=== PATIENT | male | born 1955 | race Caucasian/White ===

== ENCOUNTER 2025-04-03 02:59 | Inpatient (IN) | payer MEDICARE, MEDICAID, SELFPAY ==
[2025-04-03] VITALS (36 sets, daily range): BP systolic 83–110; BP diastolic 45–81; PULSE 59–94; RESP 11–22; TEMP 36.3–37.2; O2SAT 94–100; BMI 21.1
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
[2025-04-03 03:59] LABS: Hematocrit 26.5 % (40-54); Hemoglobin 8.1 g/dL (13.0-16.5); Mean Corp Hgb Conc 30.6 g/dL (32-36); Mean Corpuscular Volume 89.8 fL (80-94); Mean Platelet Vol. 11.2 fl (6.2-12.0); Platelet Count 222 K/mm3 (150-450); RBC Distribution Width CV 15.8 % (11.6-14.6); RBC Distribution Width SD 51.5 fl (35.1-43.9); Red Blood Count 2.95 M/mm3 (4.6-6.2); White Blood Count 6.6 K/mm3 (4.4-11.0)
[2025-04-03 04:06] LABS: Prothrombin Time (Protime)PT. 15.0 SECONDS (11.7-14.9)
[2025-04-03] MEDS: 0.9% Normal Saline (1000mL) 1,000 ML 150 ML IV (04:12)
[2025-04-03] MEDS: Pantoprazole Sodium 80 MG in 0.9% Normal Saline (100mL Bag) 80 ML 10 MG CONT INF ×3 (04:13→22:36)
[2025-04-03 04:29] LABS: AST(SGOT) 14 U/L (<=37); Alanine Aminotransfer ALT/SGPT 8 U/L (<=46); Albumin, Serum 3.1 g/dL (3.4-4.8); Alkaline Phosphatase 62 U/L (40-129); Anion Gap 11 (5-15); BUN 13 mg/dL (4-19); BUN/Creat Ratio 24.2 RATIO (10-20); Calcium,Total 8.5 mg/dL (7.6-11.0); Carbon Dioxide 24.0 mmol/L (21.0-32.0); Chloride 106 mmol/L (98-108); Estimated Creatinine Clearance 88.25 ml/min (50-250); FOLATES,SERUM (FOLIC ACID) 9.35 ng/mL (4.60-34.80); Globulin 2.1 g/dL (2.2-4.2); Glucose 78 mg/dL (70-99); Iron 151 ug/dL (65-175); Iron Binding Capacity,Total 246 ug/dL (250-450); Iron Binding Capacity,Unsat 95 ug/dL (228-428); Magnesium 1.7 mg/dL (1.5-2.2); Potassium 3.5 mmol/L (3.3-5.1)
[2025-04-03 04:30] LABS: Ferritin 45 ng/mL (37-417)
[2025-04-03 04:58] LABS: Vitamin B12 2123 pg/mL (180-914)
[2025-04-03] MEDS: 0.9% Normal Saline (1000mL) 1,000 ML 999 ML IV (06:18)
[2025-04-03 07:30] LABS: Troponin T High Sensitivity 48 ng/L (<=22)
[2025-04-03 09:41] LABS: Troponin T High Sens 2 HR 65 ng/L (<=22)
--- NOTE | 2025-04-03 10:26 | CASEMGMT ---
Addendum entered by David Gamboa 04/03/25 15:46: Pt gave permission for this RN CM to call his friend, [place], to let him know he has been admitted to [facility]. He also states would like Glenroy notified when he discharges back to [facility]. Call placed to Glenroy @ this time. He states he was aware pt has been admitted to [facility] and appreciated the call. He asked for RN CM to let pt know he and his will come visit pt once he returns to [facility]. Pt made aware and voices appreciation. Addendum entered by David Gamboa 04/03/25 11:09: Per Emani @ [facility], pt is there long-term & can return as a bed-hold, no pre-cert is needed. Addendum entered by David Gamboa 04/03/25 10:35: Updates sent to [facility] via [employer]. Original Note: RN CM NOTE: RN CM to room. Pt resting in bed, awake/alert. Introduced self and role. Pt is from [facility] and he states he would like to return there when he discharges from [facility]. Delfina ELLINGTONN ANDRESSA LAMBERT
[2025-04-03] MEDS: Lactated Ringers 1,000 ML 150 ML IV ×2 (10:50→17:31)
--- NOTE | 2025-04-03 10:57 | CASEMGMT ---
Discharge Planning Msg sent to [place] requesting confirmation of contact names/numbers and to see if pt has a legal guardian/poa. Per [place], pt has no legal guardian/poa. Contact information updated in [facility]. Modesta Briseno DC Planning Asst.
--- NOTE | 2025-04-03 11:00 | EX.PCM.CON.G ---
HPI Consult Data Date of Consult: 04/03/25 HPI Narrative Reason for Consultation: GI bleed HPI Narrative: SHAINA ANDERSON, is a 69 M who presents as a transfer from outside hospital for suspected upper GI bleed. He has a past medical history of essential hypertension, history of CVA; with residual deficits , CAD (on aspirin and Plavix) . He was transferred from [facility] ER for upper GI bleed with melanotic stools. According to the records the patient was found to have nausea and vomiting in addition to a low hemoglobin of 7 g/dL . A recheck of his labs revealed a critically low hemoglobin of 6.3 g/dL with MCV of 88 fL (down from baseline hemoglobin of ~13 g/dL in July 2024) hypotension in the ~90 mmHg systolic range with type & screen done A- and he was transfused 2 units of PRBC's in addition to being started on IV pantoprazole infusion. [facility] Medical History Depression Anxiety Sleep apnea Coronary artery disease Stroke/cerebrovascular accident Home Medications ?Medication ?Instructions ?Recorded ?Last Taken ?Type acetaminophen 500 mg capsule 1,000 mg PO BID spinal stenosis 04/03/25 04/02/25 08:40 History aspirin 81 mg tablet 81 mg PO DAILY cerebral infarction 04/03/25 04/02/25 08:40 History atorvastatin 80 mg tablet 80 mg PO DAILY 04/03/25 04/01/25 21:25 History carvedilol 3.125 mg tablet 3.125 mg PO BID 04/03/25 04/02/25 08:40 History clopidogrel 75 mg tablet 75 mg PO DAILY 04/03/25 04/02/25 08:40 History cyanocobalamin (vitamin B-12) 1,000 mcg PO DAILY 04/03/25 04/02/25 08:40 History 1,000 mcg capsule famotidine 20 mg tablet 20 mg PO BID 04/03/25 04/02/25 08:40 History gabapentin 100 mg capsule 100 mg PO DAILY 04/03/25 04/01/25 21:25 History methyl salicylate 15 %-menthol 10 1 applic topical Q4H PRN PRN 04/03/25 Unknown History % topical cream (Muscle Rub) muscle pain Allergy/AdvReac Type Severity Reaction Status Date / Time No Known Allergies Allergy Verified 04/03/25 03:05 Social History Smoking Status: Unknown if ever smoked ROS Constitutional Constitutional: Denies fatigue, fever(s), poor appetite, weight gain or weight loss Gastrointestinal Gastrointestinal: Denies belching, bloating, change in bowel habits, change in stool character, chewing difficulty, coffee ground emesis, constipation, cramping, diarrhea, dyspepsia, dysphagia, early satiety, excessive flatus, fecal incontinence, heartburn, hematemesis, hematochezia, hemorrhoids, loose stools, melena, nausea, odynophagia, rectal bleeding, tenesmus, vomiting or weight changes Physical Exam Const alert, oriented x3, no apparent distress and healthy appearing General Appearance: cooperative GI normal to inspection, nondistended, normoactive bowel sounds, soft to palpation, non-tender and non-distended Percussion: normal to percussion Rectal Exam: deferred Lab / Micro Data 04/03/25 03:41 04/03/25 03:41 Labs: Laboratory Results - last 24 hr 04/03/25 03:41: WBC 6.6, RBC 2.95 L, Hgb 8.1 L, Hct 26.5 L, MCV 89.8, MCH 27.5, MCHC 30.6 L, RDW Std Deviation 51.5 H, RDW Coeff of Delmer 15.8 H, Plt Count 222, MPV 11.2, PT 15.0 H, INR 1.2, Sodium 141, Potassium 3.5, Chloride 106, Carbon Dioxide 24.0, Anion Gap 11, BUN 13, Creatinine 0.53 L, Estim Creat Clear Calc 88.25, Est GFR (MDRD) Non-Af 109, BUN/Creatinine Ratio 24.2 H, Glucose 78, Calcium 8.5, Phosphorus 3.2, Magnesium 1.7, Iron 151, TIBC 246 L, Iron Saturation 61.4 H, Unsaturated IBC 95 L, Ferritin 45, Total Bilirubin 1.69 H, AST 14, ALT 8, Alkaline Phosphatase 62, Total Protein 5.2 L, Albumin 3.1 L, Globulin 2.1 L, Albumin/Globulin Ratio 1.5, Vitamin B12 2123 H, Serum Folate 9.35, TSH 0.648, Blood Type Cancelled, Antibody Screen Cancelled 04/03/25 04:00: Blood Type A NEGATIVE, Antibody Screen NEGATIVE 04/03/25 07:04: Troponin T High Sens 48 H 04/03/25 08:48: Troponin T Hi Sens 2 Hr 65 H* Assessment & Plan Assessment/Plan (1) ABLA (acute blood loss anemia): PLAN: He will undergo an upper endoscopy. He was explained alternatives, risk and benefits could not withstand bleeding, infection, sepsis, perforation, emergent . He will have an ASA of 3. Charges/Coding Visit Charges Inpatient E&M: 74727 Init Hosp L3
[2025-04-03 11:08] LABS: Mucous, Urine 0 SEEN /hpf (<or=2+); Squamous Epithelial Cells - UA 0 SEEN /hpf (0-5)
[2025-04-03 11:12] LABS: Color, Urine Yellow (Yellow); Glucose, Dipstick Normal (Normal); Ketone-Dipstick Negative (Negative); Leukocyte Esterase-Dipstick 500 /ul (Negative); Nitrite-Dipstick Negative (Negative); Occult Blood-Urine 250 /ul (Negative); Protein-Dipstick 100 mg/dl (Negative); Specific Gravity, Urine 1.010 (1.002-1.030); Urine Bilirubin Dipstick Negative (Negative)
[2025-04-03 11:22] LABS: Red Blood Cells-Urine 0-5 SEEN /hpf (0-5)
--- NOTE | 2025-04-03 11:34 | PRE.ANES_ITS ---
ASA Classification* ASA Classification ASA Classification: 3 Assessment & Plan Anesthesia* Anesthesia Assessment Anesthesia Assessment: Discussed sedation and/or anesthesia options, risks, benefits, and alternatives with patient/parents/legal guardian/POA. Questions invited. The patient/parents/legal guardian/POA seems to understand and agrees to proceed with anesthesia plan. Reviewed the physical assessment, medical history, allergy history and patient home medications list prior to surgery/procedure/anesthetic and documented any changes. Performed airway and anesthesia risk assessments. Anesthesia Type Anesthesia Type: MAC Anesthesia Focused Assessment* Temperature: 97.6 F Pulse Rate: 76 Blood Pressure: 96/47 Respiratory Rate: 11 Pulse Ox: 98 Airway Assessment Mouth opens: >3 cm Mallampati Score: II Labs Anesthesia Preop lab: CBC WBC, (4.4-11.0) 6.6 K/mm3 Today, 03:41 RBC, (4.6-6.2) 2.95 M/mm3 L Today, 03:41 Hgb, (13.0-16.5) 8.1 g/dL L Today, 03:41 Hct, (40-54) 26.5 % L Today, 03:41 Plt Count, (150-450) 222 K/mm3 Today, 03:41 CHEMISTRY Potassium, (3.3-5.1) 3.5 mmol/L Today, 03:41 Sodium, (133-145) 141 mmol/L Today, 03:41 Magnesium, (1.5-2.2) 1.7 mg/dL Today, 03:41 Phosphorus, (2.7-4.5) 3.2 mg/dL Today, 03:41 BUN, (4-19) 13 mg/dL Today, 03:41 Creatinine, (0.70-1.20) 0.53 mg/dL L Today, 03:41 Glucose, (70-99) 78 mg/dL Today, 03:41 TSH, (0.300-4.200) 0.648 uIU/mL Today, 03:41 COAG PT, (11.7-14.9) 15.0 SECONDS H Today, 03:41 Pre-Assessment Diagnosis/Proposed Procedure Planned Operative Procedure(s): EGD Anesthesia History Anesthesia History - resource coordinator: Anesthesia History - resource coordinator Hx Hospitalization Any Problems With Anesthesia Cholinesterase deficiency You/Your Family Experience fever (hyperthermia) with Relationship Recent Exposure to Contagious Disease Does patient have nerve stimulator Patient instructed to have device shut off --Does patient have Pacemaker or ICD? When Was Last Pacemaker Check QUESTION #4 FULL TEXT: You/Your Family Experience fever (hyperthermia) with Anesthesia Last Oral Intake Last Oral intake: Last Oral Intake NPO since Meds taken in AM with sips of water? Meds patient instructed to take am of surgery PONV PONV - resource coordinator: PONV - resource coordinator Female HX of Motion Sickness HX of N/V After Surgery Non-Smoker Duration of Surgery greater than 60 minutes Number of Risk Factors PONV Score Height & Weight Height & Weight: Anesthesia: Height & Weight Height 6 ft 04/03/25 08:20 Weight: 70.6 kg 04/03/25 08:20 Body Mass Index (BMI) 21.1 04/03/25 02:43 Respiratory Assessment Respiratory Assessment - resource coordinator: Respiratory Tract Infection Hx - resource coordinator Hx Respiratory Tract Infection STOP Sleep Apnea STOP Sleep Apnea - resource coordinator: STOP Sleep Apnea - resource coordinator Hx Hypertension Yes 04/03/25 02:43 Hx Sleep Apnea Yes 04/03/25 02:43 CPAP No 04/03/25 02:43 BIPAP No 04/03/25 02:43 Do you snore loudly (louder than talking or can be heard Do you often feel tired/ fatigued/ sleepy during daytime? Has anyone observed you stop breathing during sleep? STOP Results Positive 04/03/25 02:43 QUESTION #5 FULL TEXT : Do you snore loudly (louder than talking or can be heard through closed doors)? Tobacco Use History Tobacco Use History - resource coordinator: Tobacco Use History - resource coordinator Tobacco Use Smoking Status Unknown if ever smoked 04/03/25 02:43 Hx Tobacco Use No 04/03/25 02:43 Years Smoking Packs Smoked per Day Smoking Cessation Date was within the last 15 years Hx Smoking Cessation Date Hx Smoking Cessation No 04/03/25 02:43 Counseling Hematologic Medial History Hematologic Hx - resource coordinator: Hematologic Medical Hx - bed setter Hx of Blood Transfusion Yes 04/03/25 02:43 Hx of Transfusion in last 3 Yes 04/03/25 02:43 Months Date of Last Transfusion (if 04/02/2025 04/03/25 02:43 within last 3 months) Ever experience any problems No 04/03/25 02:43 with transfusion(s)? Specify any problems Hx of Preganancy in last 3 N/A 04/03/25 02:43 Months Nurse Filling Out Transfusion [id number] 04/03/25 02:43 & Questions: Date: 04/03/25 04/03/25 02:43 Time: 03:01 04/03/25 02:43 Patient unable to answer at this time (ie. 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 - resource coordinator: /Reproductive Hx- resource coordinator Hx Now Gestational Age (in weeks): EDC: Hx Hx Para Hx Section SAB Active Medications Active Medications: Current Medications Generic Name Dose Route Start Last Admin Trade Name Freq PRN Reason Stop Dose Admin Acetaminophen 650 mg 04/03/25 03:05 Acetaminophen 650 Mg Suppository RC Q6H PRN PRN Pain 1-5/10 or Fever Sodium Chloride 250 mls @ 15 mls/hr 04/03/25 02:44 IV .[id number] PRN Saline Flush Sodium Chloride 250 mls @ 15 mls/hr 04/03/25 02:44 IV .[id number] PRN Additional IVPB Infusion Pantoprazole Sodium 80 mg/ 100 mls @ 10 mls/hr 04/03/25 03:05 04/03/25 04:13 Sodium Chloride CONT INF 10 mls/hr Q10H LOLIS Administration Lactated Ringer's 1,000 mls @ 150 mls/hr 04/03/25 10:15 04/03/25 10:50 IV 04/03/25 23:34 150 mls/hr .[id number] LOLIS Administration Menthol 1 applic 04/03/25 03:05 Menthol 226.8 Gm Jar TOPICAL Q4H PRN PRN muscle pain 1-10 Morphine Sulfate 2 mg 04/03/25 03:05 Morphine 2 Mg/Ml Syringe IV Q4H PRN PRN Pain Score 6-10 Ondansetron HCl 4 mg 04/03/25 03:05 Ondansetron 4 Mg/2 Ml Vial IV Q6H PRN PRN NAUSEA/VOMITING Sodium Chloride 10 - 40 ml 04/03/25 02:44 0.9% Saline Lock 10 Ml Syringe IV UD PRN SALINE FLUSH PFSH Medical History Depression Anxiety Sleep apnea Coronary artery disease Stroke/cerebrovascular accident Home Medications ?Medication ?Instructions ?Recorded ?Last Taken ?Type acetaminophen 500 mg capsule 1,[address] st enosis 04/03/25 04/02/25 08:40 History aspirin 81 mg tablet 81 mg PO DAILY cerebral infa rction 04/03/25 04/02/25 08:40 History atorvastatin 80 mg tablet 80 mg PO DAILY 04/03/2501/17 21:25 History carvedilol 3.125 mg tablet 3.125 mg PO BID 04/03/25 08:40 History clopidogrel 75 mg tablet 75 mg PO DAILY 04/03/2502/17 08:40 History cyanocobalamin (vitamin B-12) 1,000 mcg PO DAILY 04/0304/02/25 08:40 History 1,000 mcg capsule famotidine 20 mg tablet 20 mg PO BID 04/03/25 08:40 History gabapentin 100 mg capsule 100 mg PO DAILY 04/03/2501/17 21:25 History methyl salicylate 15 %-menthol 10 1 applic topical Q4H PRN PRN 04/03/25 Unknown History % topical cream (Muscle Rub) muscle pain Allergy/AdvReac Type Severity Reaction Status Date / Time No Known Allergies Allergy Verified 04/03/25 03:05 Social History Smoking Status: Unknown if ever smoked Review of Systems (Anesthesia) ROS Narrative System reviewed and no additional complaints, except as documented.
[2025-04-03 11:52] LABS: Troponin T High Sens 4 HR 59 ng/L (<=22)
--- NOTE | 2025-04-03 12:00 | EGD_PTH ---
PATIENT: SHAINA ANDERSON LOC: [facility] U#:[id number] AGE/SX: 69/M ROOM: ICU02 RE04/03/[address]: Dr. Vladislav Garrido MD : [id number] BED: 1 DIS: 04/05/2025 SPEC #: [id number] RECD: 04/03/25 12:56 STATUS: YAAKOV REQ #: [id number] SARA: 04/03/25 12:[address]: Kenny Christie DEPT: SURGICAL PATHOLOGY RECD BY: Nigel Alcantara ENTERED: 04/03/25 13:52 SP TYPE: EGD BIOPSY OT DR: DO Dr. Vladislav Caban MD Dr. Yasser Omran, MD Heather Evans, PLATE GAUGER-C Maria A Araya, PLATE GAUGER-C CATHY Hernandez Tissues: A - Esophagus, NOS Procedures: Immunohistochemical Stains Special Stain Group I Surgery Specimen Level IV GMS Stain (control) HEADER OPERATION: EGD with duodenal ulcer cauterization and biopsy PRE-OP DIAGNOSIS: Upper gastrointestinal bleed, melena, acute blood loss anemia, adverse drug reaction TISSUE SUBMITTED: A- Distal esophagus biopsy MICROSCOPIC DIAGNOSIS A. Distal esophagus, biopsy: * Squamous epithelium with acute and chronic inflammation with detached acutely inflamed fibrinous exudate (See note) Note: Staining for PAS and CMV is in progress and will be reported as an addendum MICROSCOPIC DESCRIPTION Slides are reviewed. GROSS DESCRIPTION A. Received in fixative is one container labeled with the patient's name and designated Distal esophagus biopsy. The specimen consists of two irregular fragments of kennedy tissue, each measuring 0.3 cm. The specimen is totally submitted in one cassette. CO 04/03/2025 CPT:05243,[id number] ADDENDUM ADDENDUM ADDENDUM ADDENDUM ADDENDUM ADDENDUM ADDENDUM ADDENDUM ADDENDUM 04/08/2025 11:50 ADDENDUM 04/08/2025 11:50 ADDENDUM 04/08/2025 11:50 ADDENDUM 04/08/2025 11:50 ADDENDUM 04/08/2025 11:50 The CMV and PAS stains are negative All matched controls reacted appropriately. These tests were developed and their performance characteristics determined by [facility]. They may not have been cleared or approved by the U.[place]. Food and Drug Administration. The FDA has determined that such clearance or approval is not necessary. The above immunohistochemical markers are viewed by the Pathologist.
[2025-04-03] MEDS: Lidocaine 1% (5 ml sdv) 5 ML Vial 10 ML IV (12:12)
--- NOTE | 2025-04-03 12:47 | OP.PROVAT_ITS ---
04/03/2025 Leoncio Eldridge [address] [place] [address] Re : Upper GI endoscopy procedure for Matthew Luther Dear Dr. Eldridge This procedure was performed on March. My impressions and recommendations are as follows: Impressions : - LA Grade D erosive esophagitis with no bleeding. Biopsied. - No gross lesions in the stomach. - Oozing duodenal ulcer with a visible vessel. Treated with argon plasma coagulation (APC). - Non-bleeding duodenal ulcer with no stigmata of bleeding. Treated with argon plasma coagulation (APC). Recommendations : - [facility]. - Full liquid diet. - Use sucralfate tablets 1 gram PO QID. - Continue present medications. My findings are described in the full procedure note, which is enclosed. If I can be of further assistance, please feel free to contact me at . Sincerely, Kenny Christie, 04/03/2025 12:47:18 PM This report has been signed electronically.
--- NOTE | 2025-04-03 12:47 | OP.EGD_ITS ---
Patient Name: Matthew Luther Procedure Date: 04/03/2025 10:26 AM Date of : 1955 Age: 69 Procedure: Upper GI endoscopy Indications: Epigastric abdominal pain, Acute post hemorrhagic anemia, Melena Providers: Kenny Christie DO Medicines: Monitored Anesthesia Care Patient Profile: This is a 69 year old male. Refer to note in patient chart for documentation of history and physical. Patient has symptoms of acute epigastric abdominal pain. Complications: No immediate complications. Procedure: Pre-Anesthesia Assessment: - Prior to the procedure, a History and Physical was performed, and patient medications and allergies were reviewed. The patient is competent. The risks and benefits of the procedure and the sedation options and risks were discussed with the patient. All questions were answered and informed consent was obtained. Patient identification and proposed procedure were verified by the physician in the pre-procedure area. Mental Status Examination: alert and oriented. Airway Examination: normal oropharyngeal airway and neck mobility. Respiratory Examination: clear to auscultation. CV Examination: normal. Prophylactic Antibiotics: The patient does not require prophylactic antibiotics. Prior Anticoagulants: The patient has taken no anticoagulant or antiplatelet agents except for NSAID medication. ASA Grade Assessment: II - A patient with mild systemic disease. After reviewing the risks and benefits, the patient was deemed in satisfactory condition to undergo the procedure. The anesthesia plan was to use monitored anesthesia care (MAC). Immediately prior to administration of medications, the patient was re-assessed for adequacy to receive sedatives. The heart rate, respiratory rate, oxygen saturations, blood pressure, adequacy of pulmonary ventilation, and response to care were monitored throughout the procedure. The physical status of the patient was re-assessed after the procedure. After obtaining informed consent, the endoscope was passed under direct vision. Throughout the procedure, the patient's blood pressure, pulse, and oxygen saturations were monitored continuously. The gastroscope was introduced through the mouth, and advanced to the fourth part of the duodenum. Small bowel enteroscopy was deemed necessary. The upper GI endoscopy was accomplished without difficulty. The patient tolerated the procedure well. Scope In: 12:14:43 PM Scope Out: 12:36:54 PM Total Procedure Duration Time 0 hours 22 minutes 11 seconds Findings: LA Grade D (one or more mucosal breaks involving at least 75% of esophageal circumference) esophagitis with no bleeding was found 34 to 42 cm from the incisors. Biopsies were taken with a cold forceps for histology. Verification of patient identification for the specimen was done. Estimated blood loss was minimal. No gross lesions were noted in the stomach. One oozing cratered duodenal ulcer with a visible vessel was found in the duodenal bulb. The lesion was twenty mm by thirty mm in largest dimension. Coagulation for hemostasis using argon plasma at 0.3 liters/minute and 30 fofana was successful. Estimated blood loss was minimal. One non-bleeding linear duodenal ulcer with no stigmata of bleeding was found in the first portion of the duodenum. The lesion was 10 mm in largest dimension. Coagulation for destruction of remaining portion of lesion using argon plasma at 0.3 liters/minute and 20 fofana was successful. Estimated blood loss was minimal. Impression: - LA Grade D erosive esophagitis with no bleeding. Biopsied. - No gross lesions in the stomach. - Oozing duodenal ulcer with a visible vessel. Treated with argon plasma coagulation (APC). - Non-bleeding duodenal ulcer with no stigmata of bleeding. Treated with argon plasma coagulation (APC). Recommendation: - [facility]. - Full liquid diet. - Use sucralfate tablets 1 gram PO QID. - Continue present medications. Procedure Code(s): --- Professional --- 11222, 59, Small intestinal endoscopy, enteroscopy beyond second portion of duodenum, not including ileum; with control of bleeding (eg, injection, bipolar cautery, unipolar cautery, laser, heater probe, stapler, plasma water team leader) 63611, 51, Small intestinal endoscopy, enteroscopy beyond second portion of duodenum, not including ileum; with biopsy, single or multiple CPT copyright 2021 [employer]. All rights reserved. The codes documented in this report are preliminary and upon sewing line baler review may be revised to meet current compliance requirements. Kenny Christie DO 04/03/2025 12:47:18 PM This report has been signed electronically. Number of Addenda: 0 Note Initiated On: 04/03/2025 10:26 AM
--- NOTE | 2025-04-03 12:47 | PCM.POST.ANE ---
Anesthesia: Postop Eval I Current Vital Signs Temperature: 98.5 F Pulse Rate: 59 Blood Pressure: 105/62 Respiratory Rate: 16 Pulse Ox: 100 Assessment Airway patent: Yes Spontaneous unlabored respirations: Yes nausea: No Vomiting: No Anesthesia Complication: No Fluid Hydration Crystalloid volume administer (ml): 800 Total IV fluid infused: 800 Progress Note Anesthesia document: Postop Eval 1 completed: Yes
--- NOTE | 2025-04-03 12:56 | POSTOPAN2_ITS ---
Anesthesia Postop Eval I Sum Postop Eval Completion status Anesthesia document: Postop Eval 1 completed: Yes Anesthesia Postop Eval I Summary Anesthesia Postop Eval I Summary: Anesthesia Postop Eval I: Assessment Summary Airway patent Yes 04/03/25 12:47 [employer]ER [email or web address] Spontaneous unlabored Yes 04/03/25 12:47 [email or web address] respirations Mental status nausea No 04/03/25 12:47 [email or web address] Vomiting No 04/03/25 12:47 [employer] [email or web address] Anesthesia Postop Eval I: Fluid Summary Crystalloid volume administer 800 04/03/25 12:47 [employer]ER [email or web address] (ml) Colloids volume administered ( ml) Blood Product volume administered (ml) Total IV fluid infused 800 04/03/25 12:47 FIRER [email or web address] Anesthesia Postop Eval I: Summary Notes Anesthesia Complication No 04/03/25 12:47 FIR[employer] [email or web address] Anesthesia Complication Comment: Post-operative progress note Anesthesia: Postop Eval II Evaluation Mental status: Awake Pain Level: 0 nausea: No Vomiting: No
--- NOTE | 2025-04-03 12:56 | PCM.POSTANE2 ---
Anesthesia Postop Eval I Sum Postop Eval Completion status Anesthesia document: Postop Eval 1 completed: Yes Anesthesia Postop Eval I Summary Anesthesia Postop Eval I Summary: Anesthesia Postop Eval I: Assessment Summary Airway patent Yes 04/03/25 12:47 [email or web address] Spontaneous unlabored Yes 04/03/25 12:47 [email or web address] respirations Mental status nausea No 04/03/25 12:47 [email or web address] Vomiting No 04/03/25 12:47 [email or web address] Anesthesia Postop Eval I: Fluid Summary Crystalloid volume administer 800 04/03/25 12:47 [email or web address] (ml) Colloids volume administered ( ml) Blood Product volume administered (ml) Total IV fluid infused 800 04/03/25 12:47 [email or web address] Anesthesia Postop Eval I: Summary Notes Anesthesia Complication No 04/03/25 12:47 [email or web address] Anesthesia Complication Comment: Post-operative progress note Anesthesia: Postop Eval II Evaluation Mental status: Awake Pain Level: 0 nausea: No Vomiting: No
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
[2025-04-03 19:40] LABS: Hematocrit 24.0 % (40-54); Hemoglobin 7.5 g/dL (13.0-16.5)
--- NOTE | 2025-04-03 20:41 | NURSING ---
Patient asking staff where his glasses are, states he came into the hospital with them. Reviewed admission patient belonging list, no glasses on admission. [facility] states they had been sent to the hospital on patient and are not in his room at the [facility]. Called [place] [facility], staff stated glasses had been left there before transferring to [facility]. Notified [facility] the only belongings we have to send back with patient on discharge is one shirt and glasses will need to be picked up from [facility].
[2025-04-04] VITALS (27 sets, daily range): BP systolic 81–112; BP diastolic 45–90; PULSE 58–93; RESP 12–21; TEMP 36.9–37.5; O2SAT 94–100; BMI 22.8
[2025-04-04 04:42] LABS: Hematocrit 22.5 % (40-54); Hemoglobin 6.8 g/dL (13.0-16.5); Immature Granulocytes Count 0.020 X10^3/uL (0.0-0.0); Mean Corp Hgb Conc 30.2 g/dL (32-36); Mean Corpuscular Volume 91.8 fL (80-94); Mean Platelet Vol. 10.9 fl (6.2-12.0); NRBC Flagged by Analyzer 0 % (0-5); Platelet Count 163 K/mm3 (150-450); RBC Distribution Width CV 15.8 % (11.6-14.6); RBC Distribution Width SD 51.9 fl (35.1-43.9); Red Blood Count 2.45 M/mm3 (4.6-6.2); White Blood Count 6.0 K/mm3 (4.4-11.0)
[2025-04-04] MEDS: 0.9% Normal Saline (250mL Bag) 250 ML 15 ML IV (09:05)
[2025-04-04] MEDS: Pantoprazole Sodium 80 MG in 0.9% Normal Saline (100mL Bag) 80 ML 10 MG CONT INF ×2 (09:27→20:53)
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
[2025-04-04] MEDS: 0.9% Saline Lock 10 ML Syringe IV (09:40)
--- NOTE | 2025-04-04 09:56 | CASEMGMT ---
RN CM NOTE: Pt can return to [facility] when medically ready. No pre-cert is needed. Pt would like friend, [place], notified when he discharges back to [place]. Green sheet and transport sheet placed on chart. Discharge plan: Return to [facility] when medically ready under intermediate level of care. Delfina ELLINGTONN RN CM
[2025-04-04 14:18] LABS: Hematocrit 26.2 % (40-54); Hemoglobin 8.2 g/dL (13.0-16.5)
[2025-04-04 14:43] LABS: AST(SGOT) 16 U/L (<=37); Alanine Aminotransfer ALT/SGPT 10 U/L (<=46); Albumin, Serum 2.4 g/dL (3.4-4.8); Alkaline Phosphatase 57 U/L (40-129); Bilirubin, Direct 0.61 mg/dL (0.00-0.30); Globulin 2.0 g/dL (2.2-4.2)
[2025-04-04 22:42] LABS: Hematocrit 27.0 % (40-54); Hemoglobin 8.3 g/dL (13.0-16.5)
[2025-04-05] VITALS (9 sets, daily range): BP systolic 83–118; BP diastolic 52–67; PULSE 64–80; RESP 8–20; TEMP 36.9–37.2; O2SAT 93–99; BMI 22.8
[2025-04-05] MEDS: 0.9% Saline Lock 10 ML Syringe IV ×2 (04:32→10:52)
[2025-04-05 04:44] LABS: Hematocrit 27.1 % (40-54); Hemoglobin 8.4 g/dL (13.0-16.5); Immature Granulocytes Count 0.030 X10^3/uL (0.0-0.0); Mean Corp Hgb Conc 31.0 g/dL (32-36); Mean Corpuscular Volume 90.6 fL (80-94); Mean Platelet Vol. 11.1 fl (6.2-12.0); NRBC Flagged by Analyzer 0 % (0-5); Platelet Count 197 K/mm3 (150-450); RBC Distribution Width CV 15.7 % (11.6-14.6); RBC Distribution Width SD 50.8 fl (35.1-43.9); Red Blood Count 2.99 M/mm3 (4.6-6.2); White Blood Count 6.4 K/mm3 (4.4-11.0)
[2025-04-05 05:05] LABS: AST(SGOT) 25 U/L (<=37); Alanine Aminotransfer ALT/SGPT 9 U/L (<=46); Albumin, Serum 2.4 g/dL (3.4-4.8); Alkaline Phosphatase 53 U/L (40-129); Anion Gap 7 (5-15); BUN 7 mg/dL (4-19); BUN/Creat Ratio 16.3 RATIO (10-20); Bilirubin, Direct 0.40 mg/dL (0.00-0.30); Calcium,Total 7.9 mg/dL (7.6-11.0); Carbon Dioxide 24.4 mmol/L (21.0-32.0); Chloride 108 mmol/L (98-108); Estimated Creatinine Clearance 95.75 ml/min (50-250); Globulin 1.9 g/dL (2.2-4.2); Glucose 88 mg/dL (70-99); Potassium 3.3 mmol/L (3.3-5.1)
[2025-04-05] MEDS: Pantoprazole Sodium 80 MG in 0.9% Normal Saline (100mL Bag) 80 ML 10 MG CONT INF (06:02)
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
--- NOTE | 2025-04-05 08:06 | PCM.DC ---
Discharge Instructions DC O2, CPAP, BIPAP needs Home O2 Discharge instructions: No Dressing / Incision Discharge Activity: Return to Normal Activity and May Not Drive Weight Bearing Status: Weight bearing as tolerated Dressing / Incision Call your doctor if you observe: Fever of 101 or Higher, Coldness, Increased Pain, Numbness or Tingling, Change in Color, Inability to urinate, Inability to have a bowel movement, Shortness of breath, Dizziness, Fainting spells, Swelling in the ankles, Chest pain, Prolonged hiccupping, Increased palpitations (irregular heartbeat) and Calf discomfort Follow Up Care When: IN 2 WEEKS Test Results: Test results from this visit will be discussed in further detail at your follow-up appointment, if applicable. Discharge Plan Admission Admit Date/Time: 04/03/25 02:59 Primary Reason for Your Visit: Upper GI bleed Attending Provider: Vladislav Garrido Primary Care Provider: Leoncio Eldridge Consulting Providers: Vladislav Garrido; Kenny Christie; Alyssa Purcell; Mari aA Araya; Verona Ayala; Daniel Vee Instructions Additional Instructions / Restrictions: CBC in 2 to 3 days and then twice weekly. Discharge Orders/Prescriptions Prescriptions: New midodrine 10 mg tablet 10 mg PO TIDCM 30 Days Qty: 90 0RF Rx Instructions: Hold if SBP more than 100 mmHg sucralfate 1 gram Tablet 1 g PO 1HR_ACHS 30 Days Qty: 120 0RF pantoprazole [Protonix] 40 mg tablet,delayed release (DR/EC) 40 mg PO BID 30 Days Qty: 60 2RF ferrous sulfate 325 mg (65 mg iron) tablet 325 mg PO QODAY Qty: 30 2RF ascorbic acid (vitamin C) 1,000 mg tablet 1,000 mg PO DAILY 30 Days Qty: 30 2RF Continued atorvastatin 80 mg tablet 80 mg PO DAILY carvedilol 3.125 mg tablet 3.125 mg PO BID gabapentin 100 mg capsule 100 mg PO DAILY cyanocobalamin (vitamin B-12) 1,000 mcg capsule 1,000 mcg PO DAILY acetaminophen 500 mg capsule 1,000 mg PO BID Muscle Rub 15-10 % cream 1 applic topical Q4H PRN PRN (Reason: muscle pain) Held clopidogrel 75 mg tablet 75 mg PO DAILY Hold Instructions: Hold for 1 week. If hemoglobin continues to be less than 8 g% then discontinue it as would be able to tolerate dual antiplatelet agent aspirin 81 mg tablet 81 mg PO DAILY Hold Instructions: Hold for 5 more days Discontinued famotidine 20 mg tablet 20 mg PO BID Referrals / Follow Up: Leoncio Eldridge MD [Primary Care Provider, Internal Medicine] Verona Ayala PA [Med Staff - [facility] Practice Prof, Gastroenterology] - Within 1 Month Disposition Disposition (needs filled in before D/C Order can be placed): NonSkilled NH/Intermed Care
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
== END 2025-04-05 12:02 | disposition intermediate care facility (04) | DRG 377 ==
PROVIDERS: Internal Medicine Gastroenterology; Admitting Provider Internal Medicine; PCP Internal Medicine Infectious Disease; Visit Provider Internal Medicine
PROC: 0DJ08ZZ Inspection of Upper Intestinal Tract, Via Natural or Artificial Opening Endoscopic (ICD-10-PCS; CPT 43235; principal; 2025-04-03 11:55)
DX: K26.4 Chronic or unspecified duodenal ulcer with hemorrhage (principal); R57.8 Other shock; D62 Acute posthemorrhagic anemia; I69.391 Dysphagia following cerebral infarction; I10 Essential (primary) hypertension; I25.10 Atherosclerotic heart disease of native coronary artery without angina pectoris; E78.5 Hyperlipidemia, unspecified; G47.33 Obstructive sleep apnea (adult) (pediatric); F41.8 Other specified anxiety disorders; M19.90 Unspecified osteoarthritis, unspecified site; K21.00 Gastro-esophageal reflux disease with esophagitis, without bleeding; N40.0 Benign prostatic hyperplasia without lower urinary tract symptoms; T50.905A Adverse effect of unspecified drugs, medicaments and biological substances, initial encounter; Z79.899 Other long term (current) drug therapy
CPT/HCPCS: 80048; 80053; 80076; 81001; 82607; 82728; 82746; 83540; 83550; 83735; 84100; 84443; 84484; 85014; 85018; 85025; 85027; 85610; 86850; 86900; 86901; 88305; 88312; 88342; 94668; 94762; C1889; P9016; A4216

== ENCOUNTER 2025-06-04 13:46 | Day surgery (SDC) | payer MEDICARE, MEDICAID, SELFPAY ==
[2025-06-04] VITALS (10 sets, daily range): BP systolic 93–108; BP diastolic 56–73; PULSE 90–96; RESP 18–20; TEMP 36.6–37.6; O2SAT 98–100; BMI 21.8
[2025-06-04] MEDS: Lactated Ringers 1,000 ML 15 ML IV (14:32)
--- NOTE | 2025-06-04 14:43 | PCM.PRE.AN2 ---
ASA Classification* ASA Classification ASA Classification: 3 Assessment & Plan Anesthesia* Anesthesia Assessment Anesthesia Assessment: Discussed sedation and/or anesthesia options, risks, benefits, and alternatives with patient/parents/legal guardian/POA. Questions invited. The patient/parents/legal guardian/POA seems to understand and agrees to proceed with anesthesia plan. Reviewed the physical assessment, medical history, allergy history and patient home medications list prior to surgery/procedure/anesthetic and documented any changes. Performed airway and anesthesia risk assessments. Anesthesia Type Anesthesia Type: MAC Anesthesia Focused Assessment* Temperature: 98.7 F Pulse Rate: 94 Blood Pressure: 108/73 Respiratory Rate: 18 Pulse Ox: 100 Airway Assessment Mouth opens: >3 cm Mallampati Score: II Labs Anesthesia Preop lab: CBC WBC, (4.4-11.0) 6.4 K/mm3 04/05/25, 04:30 RBC, (4.6-6.2) 2.99 M/mm3 L 04/05/25, 04:30 Hgb, (13.0-16.5) 8.4 g/dL L 04/05/25, 04:30 Hct, (40-54) 27.1 % L 04/05/25, 04:30 Plt Count, (150-450) 197 K/mm3 04/05/25, 04:30 CHEMISTRY Potassium, (3.3-5.1) 3.3 mmol/L 04/05/25, 04:30 Sodium, (133-145) 139 mmol/L 04/05/25, 04:30 Magnesium, (1.5-2.2) 1.7 mg/dL 04/03/25, 03:41 Phosphorus, (2.7-4.5) 3.2 mg/dL 04/03/25, 03:41 BUN, (4-19) 7 mg/dL 04/05/25, 04:30 Creatinine, (0.70-1.20) 0.40 mg/dL L 04/05/25, 04:30 Glucose, (70-99) 88 mg/dL 04/05/25, 04:30 TSH, (0.300-4.200) 0.648 uIU/mL 04/03/25, 03:41 COAG PT, (11.7-14.9) 15.0 SECONDS H 04/03/25, 03:41 Pre-Assessment Diagnosis/Proposed Procedure Planned Operative Procedure(s): EGD Anesthesia History 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 When Was Last Pacemaker Check QUESTION #4 FULL TEXT: You/Your Family Experience fever (hyperthermia) with Anesthesia Last Oral Intake Last Oral intake: Last Oral Intake NPO since 00:00 06/04/25 14:24 Meds taken in AM with sips of Yes 06/04/25 14:24 water? 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 Female No 06/02/25 12:02 HX of Motion Sickness No 06/02/25 12:02 HX of N/V After Surgery No 06/02/25 12:02 Non-Smoker Yes 06/02/25 12:02 Duration of Surgery greater No 06/02/25 12:02 than 60 minutes Number of Risk Factors 1 06/02/25 12:02 PONV Score Low Risk 06/02/25 12:02 Height & Weight Height & Weight: Anesthesia: Height & Weight Height 6 ft 06/04/25 14:24 Weight: 73.028 kg 06/04/25 14:24 Body Mass Index (BMI) 21.8 06/04/25 14:24 Respiratory Assessment Respiratory Assessment - tailoring teacher: Respiratory Tract Infection Hx - tailoring teacher Hx Respiratory Tract Infection No 06/02/25 12:02 STOP Sleep Apnea STOP Sleep Apnea - tailoring teacher: STOP Sleep Apnea - tailoring teacher Hx Hypertension No 06/02/25 12:02 Hx Sleep Apnea No 06/02/25 12:02 CPAP No 04/03/25 02:43 BIPAP No 04/03/25 02:43 Do you snore loudly (louder No 06/02/25 12:02 than talking or can be heard Do you often feel tired/ No 06/02/25 12:02 fatigued/ sleepy during daytime? Has anyone observed you stop No 06/02/25 12:02 breathing during sleep? STOP Results Negative 06/02/25 12:02 QUESTION #5 FULL TEXT : Do you snore loudly (louder than talking or can be heard through closed doors)? 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 Specify any problems Hx of Preganancy in last 3 N/A 06/02/25 12:02 Months Nurse Filling Out Transfusion NBUCHER 06/02/25 12:02 & Questions: Date: 06/02/25 06/02/25 12:02 Time: 12:05 06/02/25 12:02 Patient unable to answer at this time (ie. 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: /Reproductive Hx- tailoring teacher Hx Now No 06/02/25 12:02 Gestational Age (in weeks): EDC: Hx Hx Para Hx Section SAB No 06/02/25 12:02 Does the father of the baby or his family experience fever w Father of the baby Malignant Hypertension history comment Active Medications Active Medications: Current Medications Generic Name Dose Route Start Last Admin Trade Name Freq PRN Reason Stop Dose Admin Lactated Ringer's 1,000 mls @ 15 mls/hr 06/04/25 14:45 06/04/25 14:32 IV 15 mls/hr .Q48H LOLIS Administration PFSH Medical History History of ulceration Uses wheelchair History of GI bleed Anemia Hypertension History of CVA with residual deficit Depression Anxiety Sleep apnea Coronary artery disease Stroke/cerebrovascular accident Home Medications ?Medication ?Instructions ?Recorded ?Last Taken ?Type acetaminophen 500 mg capsule 1,000 mg PO BID spinal stenosis 04/03/25 04/02/25 08:40 History atorvastatin 80 mg tablet 80 mg PO DAILY 04/03/25 06/04/25 History clopidogrel 75 mg tablet 75 mg PO DAILY 04/03/25 05/31/25 History Held on 04/05/25. Instructions: Hold for 1 week. If hemoglobin continues to be less than 8 g% then discontinue it as would be able to tolerate dual antiplatelet agent cyanocobalamin (vitamin B-12) 1,000 mcg PO DAILY 04/03/25 06/04/25 History 1,000 mcg capsule gabapentin 100 mg capsule 100 mg PO DAILY 04/03/25 06/04/25 History methyl salicylate 15 %-menthol 10 1 applic topical Q4H PRN PRN 04/03/25 Unknown History % topical cream (Muscle Rub) muscle pain ascorbic acid (vitamin C) 1,000 mg 1,000 mg PO DAILY 1 month #30 tabs 04/05/25 06/04/25 Rx tablet ferrous sulfate 325 mg (65 mg 325 mg PO QODAY #30 tabs 04/05/25 Unknown Rx iron) tablet midodrine 10 mg tablet 10 mg PO TIDCM 30 days #90 tabs 04/05/25 06/04/25 Rx sucralfate 1 gram tablet 1 g PO 1HR_ACHS 1 month #120 tabs 04/05/25 06/03/25 Rx artificial tears(hypromellose) 0.2 1 drp ophthalmic (eye) 4XD 05/14/25 Unknown History % eye drops sodium chloride 1 gram tablet 1,000 mg PO BID 05/14/25 06/04/25 History omeprazole 20 mg capsule,delayed 20 mg PO DAILY 06/04/25 Unknown History release Allergy/AdvReac Type Severity Reaction Status Date / Time No Known Allergies Allergy Verified 06/04/25 14:15 Social History Smoking Status: Never smoker Review of Systems (Anesthesia) ROS Narrative System reviewed and no additional complaints, except as documented.
--- NOTE | 2025-06-04 14:45 | PCM.PRE.AN2 ---
ASA Classification* ASA Classification ASA Classification: 4 Assessment & Plan Anesthesia* Anesthesia Assessment Anesthesia Assessment: Discussed sedation and/or anesthesia options, risks, benefits, and alternatives with patient/parents/legal guardian/POA. Questions invited. The patient/parents/legal guardian/POA seems to understand and agrees to proceed with anesthesia plan. Reviewed the physical assessment, medical history, allergy history and patient home medications list prior to surgery/procedure/anesthetic and documented any changes. Performed airway and anesthesia risk assessments. Anesthesia Type Anesthesia Type: MAC History Source History Obtained from:: Patient and Chart Anesthesia Focused Assessment* Temperature: 98.7 F Pulse Rate: 94 Blood Pressure: 108/73 Respiratory Rate: 18 Pulse Ox: 100 Oxygen Delivery Method: Room Air Airway Assessment Mouth opens: >3 cm Mallampati Score: III Teeth Condition: Intact Comment: Non ambulatory with some subjective r. sided weakness Labs Anesthesia Preop lab: CBC WBC, (4.4-11.0) 6.4 K/mm3 04/05/25, 04:30 RBC, (4.6-6.2) 2.99 M/mm3 L 04/05/25, 04:30 Hgb, (13.0-16.5) 8.4 g/dL L 04/05/25, 04:30 Hct, (40-54) 27.1 % L 04/05/25, 04:30 Plt Count, (150-450) 197 K/mm3 04/05/25, 04:30 CHEMISTRY Potassium, (3.3-5.1) 3.3 mmol/L 04/05/25, 04:30 Sodium, (133-145) 139 mmol/L 04/05/25, 04:30 Magnesium, (1.5-2.2) 1.7 mg/dL 04/03/25, 03:41 Phosphorus, (2.7-4.5) 3.2 mg/dL 04/03/25, 03:41 BUN, (4-19) 7 mg/dL 04/05/25, 04:30 Creatinine, (0.70-1.20) 0.40 mg/dL L 04/05/25, 04:30 Glucose, (70-99) 88 mg/dL 04/05/25, 04:30 TSH, (0.300-4.200) 0.648 uIU/mL 04/03/25, 03:41 COAG PT, (11.7-14.9) 15.0 SECONDS H 04/03/25, 03:41 Pre-Assessment Diagnosis/Proposed Procedure Planned Operative Procedure(s): EGD Anesthesia History 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 When Was Last Pacemaker Check QUESTION #4 FULL TEXT: You/Your Family Experience fever (hyperthermia) with Anesthesia Last Oral Intake Last Oral intake: Last Oral Intake NPO since 00:00 06/04/25 14:24 Meds taken in AM with sips of Yes 06/04/25 14:24 water? 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 Female No 06/02/25 12:02 HX of Motion Sickness No 06/02/25 12:02 HX of N/V After Surgery No 06/02/25 12:02 Non-Smoker Yes 06/02/25 12:02 Duration of Surgery greater No 06/02/25 12:02 than 60 minutes Number of Risk Factors 1 06/02/25 12:02 PONV Score Low Risk 06/02/25 12:02 Height & Weight Height & Weight: Anesthesia: Height & Weight Height 6 ft 06/04/25 14:24 Weight: 73.028 kg 06/04/25 14:24 Body Mass Index (BMI) 21.8 06/04/25 14:24 Respiratory Assessment Respiratory 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 Has anyone observed you stop No 06/02/25 12:02 breathing during sleep? STOP Results Negative 06/02/25 12:02 QUESTION #5 FULL TEXT : Do you snore loudly (louder than talking or can be heard through closed doors)? 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 Specify any problems Hx of Preganancy in last 3 N/A 06/02/25 12:02 Months Nurse Filling Out Transfusion NBUCHER 06/02/25 12:02 & Questions: Date: 06/02/25 06/02/25 12:02 Time: 12:05 06/02/25 12:02 Patient unable to answer at this time (ie. 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: /Reproductive Hx- contractor general engineering Hx Now No 06/02/25 12:02 Gestational Age (in weeks): EDC: Hx Hx Para Hx Section SAB No 06/02/25 12:02 Does the father of the baby or his family experience fever w Father of the baby Malignant Hypertension history comment Active Medications Active Medications: Current Medications Generic Name Dose Route Start Last Admin Trade Name Freq PRN Reason Stop Dose Admin Lactated Ringer's 1,000 mls @ 15 mls/hr 06/04/25 14:45 06/04/25 14:32 IV 15 mls/hr .Q48H LOLIS Administration PFSH Medical History History of ulceration Uses wheelchair History of GI bleed Anemia Hypertension History of CVA with residual deficit Depression Anxiety Sleep apnea Coronary artery disease Stroke/cerebrovascular accident Home Medications ?Medication ?Instructions ?Recorded ?Last Taken ?Type acetaminophen 500 mg capsule 1,000 mg PO BID spinal stenosis 04/03/25 04/02/25 08:40 History atorvastatin 80 mg tablet 80 mg PO DAILY 04/03/25 06/04/25 History clopidogrel 75 mg tablet 75 mg PO DAILY 04/03/25 05/31/25 History Held on 04/05/25. Instructions: Hold for 1 week. If hemoglobin continues to be less than 8 g% then discontinue it as would be able to tolerate dual antiplatelet agent cyanocobalamin (vitamin B-12) 1,000 mcg PO DAILY 04/03/25 06/04/25 History 1,000 mcg capsule gabapentin 100 mg capsule 100 mg PO DAILY 04/03/25 06/04/25 History methyl salicylate 15 %-menthol 10 1 applic topical Q4H PRN PRN 04/03/25 Unknown History % topical cream (Muscle Rub) muscle pain ascorbic acid (vitamin C) 1,000 mg 1,000 mg PO DAILY 1 month #30 tabs 04/05/25 06/04/25 Rx tablet ferrous sulfate 325 mg (65 mg 325 mg PO QODAY #30 tabs 04/05/25 Unknown Rx iron) tablet midodrine 10 mg tablet 10 mg PO TIDCM 30 days #90 tabs 04/05/25 06/04/25 Rx sucralfate 1 gram tablet 1 g PO 1HR_ACHS 1 month #120 tabs 04/05/25 06/03/25 Rx artificial tears(hypromellose) 0.2 1 drp ophthalmic (eye) 4XD 05/14/25 Unknown History % eye drops sodium chloride 1 gram tablet 1,000 mg PO BID 05/14/25 06/04/25 History omeprazole 20 mg capsule,delayed 20 mg PO DAILY 06/04/25 Unknown History release Allergy/AdvReac Type Severity Reaction Status Date / Time No Known Allergies Allergy Verified 06/04/25 14:15 Social History Smoking Status: Never smoker Review of Systems (Anesthesia) ROS Narrative System reviewed and no additional complaints, except as documented. Physical Exam Const alert, oriented x3 and average body habitus HEENT dentition normal Resp normal respiratory effort, normal air movement and clear to auscultation bilaterally Cardio regular rate and regular rhythm Neuro oriented x3 and moves all extremities Neuro Narrative: Patient dose not ambulate and is a hauwer lift.
--- NOTE | 2025-06-04 15:00 | EGD_PTH ---
PATIENT: SHAINA ANDERSON LOC: [facility] U#:[id number] AGE/SX: 70/M ROOM: RE06/04/[address]: Dr. Kenny Christie DO : 1955 BED: DIS: 06/04/2025 SPEC #: [id number] RECD: 06/04/25 18:58 STATUS: YAAKOV REPrashant #: [id number] SARA: 06/04/25 15:[address]: Kenny Christie DEPT: SURGICAL PATHOLOGY RECD BY: Nigel Alcantara ENTERED: 06/05/25 09:55 SP TYPE: EGD BIOPSY MATTHIAS DR: Dr. Leoncio Eldridge MD Tissues: A - Esophagus, NOS Procedures: Surgery Specimen Level IV HEADER OPERATION: EGD, biopsy, dilation PRE-OP DIAGNOSIS: Upper gastrointestinal bleed TISSUE SUBMITTED: A- Distal esophagus biopsy MICROSCOPIC DIAGNOSIS A. Esophagus, distal, biopsy: - Squamous mucosa negative for eosinoihils. - Columnar mucosa negative for goblet cell metaplasia. MICROSCOPIC DESCRIPTION Slides are reviewed. GROSS DESCRIPTION A. Received in fixative is one container labeled with the patient's name and designated Distal esophagus biopsy. The specimen consists of multiple irregular fragments of kennedy tissue that in aggregate measure 1.2 x 0.6 x 0.1 cm. The specimen is totally submitted in one cassette. CA 06/05/2025 CPT:23677
--- NOTE | 2025-06-04 15:17 | PCM.HP.STD ---
HPI - General General Date of Admission: 06/04/25 Date of Service: 06/04/25 Chief Complaint: melena HPI Narrative SHAINA ANDERSON, is a 70 M who presents [ SHAINA ANDERSON is a 70 M who presents to the office today for hospital follow-up. [facility] admission 04/03/2025 - 04/05/2025 after transfer from [facility] ER for upper GI bleed with melanotic stools. Hemoglobin found to be 7 and underwent blood transfusion with 2 units. Repeat hemoglobin was 7.9 was ultimately decided to transfer. Underwent EGD which demonstrated esophagitis and bleeding duodenal ulcers. EGD 04/03/2025 - LA Grade D erosive esophagitis with no bleeding. Biopsied. - No gross lesions in the stomach. - Oozing duodenal ulcer with a visible vessel. Treated with argon plasma coagulation (APC). - Non-bleeding duodenal ulcer with no stigmata of bleeding. Treated with argon plasma coagulation (APC). Pathology: Distal esophagus squamous epithelium with acute and chronic inflammation with detached acutely inflamed fibrinous exudate negative for CMV and PAS stains OV 05/14/2025 - Feeling well, no GI symptoms. - Denies black stool. Having a daily bowel movement that is soft - Continues with pantoprazole and sucralfate PFSH Medical History History of ulceration Uses wheelchair History of GI bleed Anemia Hypertension History of CVA with residual deficit Depression Anxiety Sleep apnea Coronary artery disease Stroke/cerebrovascular accident Home Medications ?Medication ?Instructions ?Recorded ?Last Taken ?Type acetaminophen 500 mg capsule 1,000 mg PO BID spinal stenosis 04/03/25 04/02/25 08:40 History atorvastatin 80 mg tablet 80 mg PO DAILY 04/03/25 06/04/25 History clopidogrel 75 mg tablet 75 mg PO DAILY 04/03/25 05/31/25 History Held on 04/05/25. Instructions: Hold for 1 week. If hemoglobin continues to be less than 8 g% then discontinue it as would be able to tolerate dual antiplatelet agent cyanocobalamin (vitamin B-12) 1,000 mcg PO DAILY 04/03/25 06/04/25 History 1,000 mcg capsule gabapentin 100 mg capsule 100 mg PO DAILY 04/03/25 06/04/25 History methyl salicylate 15 %-menthol 10 1 applic topical Q4H PRN PRN 04/03/25 Unknown History % topical cream (Muscle Rub) muscle pain ascorbic acid (vitamin C) 1,000 mg 1,000 mg PO DAILY 1 month #30 tabs 04/05/25 06/04/25 Rx tablet ferrous sulfate 325 mg (65 mg 325 mg PO QODAY #30 tabs 04/05/25 Unknown Rx iron) tablet midodrine 10 mg tablet 10 mg PO TIDCM 30 days #90 tabs 04/05/25 06/04/25 Rx sucralfate 1 gram tablet 1 g PO 1HR_ACHS 1 month #120 tabs 04/05/25 06/03/25 Rx artificial tears(hypromellose) 0.2 1 drp ophthalmic (eye) 4XD 05/14/25 Unknown History % eye drops sodium chloride 1 gram tablet 1,000 mg PO BID 05/14/25 06/04/25 History omeprazole 20 mg capsule,delayed 20 mg PO DAILY 06/04/25 Unknown History release Allergy/AdvReac Type Severity Reaction Status Date / Time No Known Allergies Allergy Verified 06/04/25 14:15 Social History Smoking Status: Never smoker ROS Constitutional Constitutional: Denies fatigue, fever(s), poor appetite, weight gain or weight loss Gastrointestinal Gastrointestinal: Denies belching, bloating, change in bowel habits, change in stool character, chewing difficulty, coffee ground emesis, constipation, cramping, diarrhea, dyspepsia, dysphagia, early satiety, excessive flatus, fecal incontinence, heartburn, hematemesis, hematochezia, hemorrhoids, loose stools, melena, nausea, odynophagia, rectal bleeding, tenesmus, vomiting or weight changes Vital Signs Vital Signs Vital Signs: 06/04/25 14:24 06/04/25 14:24 06/04/25 14:24 Temperature 98.7 F Temperature Source Temporal Pulse Rate 94 Respiratory Rate 18 Respiratory Pattern Normal Blood Pressure 108/73 Blood Pressure Mean 84 Blood Pressure Source Monitor Blood Pressure Position Semi-Fowlers Blood Pressure Location Right Arm Baseline BP 108/73 Pulse Ox 100 Oxygen Delivery Method Room Air 06/04/25 14:44 06/04/25 14:51 Temperature 98.7 F 98.7 F Temperature Source Pulse Rate 94 94 Respiratory Rate 18 18 Respiratory Pattern Blood Pressure 108/73 108/73 Blood Pressure Mean Blood Pressure Source Blood Pressure Position Blood Pressure Location Baseline BP Pulse Ox 100 100 Oxygen Delivery Method Room Air Weight Weight: 161 lb Body Mass Index (BMI) 21.8 Physical Exam Const alert, oriented x3, no apparent distress and healthy appearing General Appearance: cooperative GI normal to inspection, nondistended, normoactive bowel sounds, soft to palpation, non-tender and non-distended Percussion: normal to percussion Rectal Exam: deferred Assessment & Plan Assessment/Plan (1) Melena: (2) UGIB (upper gastrointestinal bleed): PLAN: Assessment and Plan Assessment and Plan (1) UGIB (upper gastrointestinal bleed): Status: Acute Plan: Shaina is a 70-year-old male patient with past medical history of CVA, dysphagia, coronary artery disease, REMI, anxiety and depression here today for hospital follow-up. Patient hospitalized in March 2025 after presenting to [place] ED with melanotic stools. Patient's hemoglobin was 7 and was transfused 2 units. He continued to have melanotic stools and hemoglobin on repeat was 7.9. Ultimately he was transferred to [facility] for further management. Patient underwent EGD which showed LA grade D esophagitis nonbleeding, oozing duodenal ulcer and nonbleeding duodenal ulcer. Patient was started on pantoprazole 40 mg twice a day and sucralfate 1 g daily for a month. Hemoglobin from 05/05/2025 was in the tens which is improved. Patient feels well today with no GI complaints. He denies any further melanotic stools. I recommended continuing pantoprazole 40 mg twice a day until his repeat EGD. Today he was scheduled for EGD to ensure healing of his severe esophagitis. - Repeat EGD to ensure healing - Continue pantoprazole 40 mg twice a day - Follow-up as needed Note: Portions of this note may have been selectively carried forward from previous documentation to ensure continuity and accuracy of the clinical record. All imported information has been reviewed and updated as necessary to reflect the current patient status, findings, and clinical decision-making for this encounter. [employer] speech recognition assembly line driver software was used to create portions of this document. Sound alike and misspelled words, as well as other assembly line driver errors may be contained in the documentation. (2) Melena: Status: Acute ]
--- NOTE | 2025-06-04 16:21 | PCM.POST.ANE ---
Anesthesia: Postop Eval I Current Vital Signs Temperature: 97.8 F Pulse Rate: 95 Blood Pressure: 100/71 Respiratory Rate: 20 Pulse Ox: 99 Oxygen Delivery Method: Room Air Assessment Airway patent: Yes Spontaneous unlabored respirations: Yes Mental status: Awake nausea: No Vomiting: No Anesthesia Complication: No Fluid Hydration Crystalloid volume administer (ml): 200 Total IV fluid infused: 200 Progress Note Anesthesia document: Postop Eval 1 completed: Yes
--- NOTE | 2025-06-04 16:24 | OP.EGD_ITS ---
Patient Name: Matthew Luther Procedure Date: 06/04/2025 3:52 PM Date of : 1955 Age: 70 Procedure: Upper GI endoscopy Indications: Dysphagia Providers: Kenny Christie DO Referring MD: Leoncio Eldridge Medicines: Monitored Anesthesia Care Patient Profile: This is a 70 year old male. Refer to note in patient chart for documentation of history and physical. Patient has symptoms of dysphagia with solids. Complications: No immediate complications. Procedure: Pre-Anesthesia Assessment: - Prior to the procedure, a History and Physical was performed, and patient medications and allergies were reviewed. The patient is competent. The risks and benefits of the procedure and the sedation options and risks were discussed with the patient. All questions were answered and informed consent was obtained. Patient identification and proposed procedure were verified by the physician in the pre-procedure area. Mental Status Examination: alert and oriented. Airway Examination: normal oropharyngeal airway and neck mobility. Respiratory Examination: clear to auscultation. CV Examination: normal. Prophylactic Antibiotics: The patient does not require prophylactic antibiotics. Prior Anticoagulants: The patient has taken no anticoagulant or antiplatelet agents except for NSAID medication. ASA Grade Assessment: II - A patient with mild systemic disease. After reviewing the risks and benefits, the patient was deemed in satisfactory condition to undergo the procedure. The anesthesia plan was to use monitored anesthesia care (MAC). Immediately prior to administration of medications, the patient was re-assessed for adequacy to receive sedatives. The heart rate, respiratory rate, oxygen saturations, blood pressure, adequacy of pulmonary ventilation, and response to care were monitored throughout the procedure. The physical status of the patient was re-assessed after the procedure. After obtaining informed consent, the endoscope was passed under direct vision. Throughout the procedure, the patient's blood pressure, pulse, and oxygen saturations were monitored continuously. The Endoscope was introduced through the mouth, and advanced to the second part of duodenum. The upper GI endoscopy was accomplished without difficulty. The patient tolerated the procedure well. Scope In: 4:05:02 PM Scope Out: 4:13:35 PM Total Procedure Duration Time 0 hours 8 minutes 33 seconds Findings: One benign-appearing, intrinsic moderate stenosis was found 20 to 24 cm from the incisors. This stenosis measured 5 cm (in length). The stenosis was traversed. A guidewire was placed and the scope was withdrawn. Dilation was performed with a Savary dilator with no resistance at 57 Fr. The dilation site was examined and showed mild mucosal disruption. Estimated blood loss was minimal. A moderate Schatzki ring was found at the gastroesophageal junction. Biopsies were taken with a cold forceps for histology. Verification of patient identification for the specimen was done. A guidewire was placed and the scope was withdrawn. Dilation was performed with a Savary dilator with no resistance at 57 Fr. No gross lesions were noted in the entire examined stomach. No gross lesions were noted in the entire examined duodenum. Impression: - Benign-appearing esophageal stenosis. Dilated. - Moderate Schatzki ring. Biopsied. Dilated. - No gross lesions in the entire stomach. - No gross lesions in the entire examined duodenum. Recommendation: - Discharge patient to home. - Resume previous diet. - Continue present medications. - Await pathology results. Procedure Code(s): --- Professional --- 31855, Esophagogastroduodenoscopy, flexible, transoral; with insertion of guide wire followed by passage of dilator(s) through esophagus over guide wire 23453, 59,51, Esophagogastroduodenoscopy, flexible, transoral; with biopsy, single or multiple CPT copyright 2021 [employer]. All rights reserved. The codes documented in this report are preliminary and upon manager hiv review may be revised to meet current compliance requirements. Kenny Christie DO 06/04/2025 4:23:31 PM This report has been signed electronically. Number of Addenda: 0 Note Initiated On: 06/04/2025 3:52 PM
--- NOTE | 2025-06-04 16:24 | OP.PROVAT_ITS ---
06/04/2025 Leoncio Eldridge [address] [place] [address] Re : Upper GI endoscopy procedure for Matthew Luther Dear Dr. Eldridge This procedure was performed on Wednesday, June 04, 2025. My impressions and recommendations are as follows: Impressions : - Benign-appearing esophageal stenosis. Dilated. - Moderate Schatzki ring. Biopsied. Dilated. - No gross lesions in the entire stomach. - No gross lesions in the entire examined duodenum. Recommendations : - Discharge patient to home. - Resume previous diet. - Continue present medications. - Await pathology results. My findings are described in the full procedure note, which is enclosed. If I can be of further assistance, please feel free to contact me at . Sincerely, Kenny Christie, 06/04/2025 4:23:31 PM This report has been signed electronically.
--- NOTE | 2025-06-04 17:09 | POSTOPAN2_ITS ---
Anesthesia Postop Eval I Sum Postop Eval Completion status Anesthesia document: Postop Eval 1 completed: Yes Anesthesia Postop Eval I Summary Anesthesia Postop Eval I Summary: Anesthesia Postop Eval I: Assessment Summary Airway patent Yes 06/04/25 16:22 [email or web address] Spontaneous unlabored Yes 06/04/25 16:22 [email or web address] respirations Mental status Awake 06/04/25 16:22 [email or web address] nausea No 06/04/25 16:22 [email or web address] Vomiting No 06/04/25 16:22 [email or web address] Anesthesia Postop Eval I: Fluid Summary Crystalloid volume administer 200 06/04/25 16:22 [email or web address] (ml) Colloids volume administered ( ml) Blood Product volume administered (ml) Total IV fluid infused 200 06/04/25 16:22 [email or web address] Anesthesia Postop Eval I: Summary Notes Anesthesia Complication No 06/04/25 16:22 [email or web address] Anesthesia Complication Comment: Post-operative progress note Anesthesia: Postop Eval II Evaluation Mental status: Awake and Calm Pain Level: 0 nausea: No Vomiting: No Complications Anesthesia Complication: No
--- NOTE | 2025-06-04 17:09 | PCM.POSTANE2 ---
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 Spontaneous unlabored Yes 06/04/25 16:22 [email or web address] [email or web address] respirations Mental status Awake 06/04/25 16:22 [email or web address] nausea No 06/04/25 16:22 [email or web address] Vomiting No 06/04/25 16:22 [email or web address] Anesthesia Postop Eval I: Fluid Summary Crystalloid volume administer 200 06/04/25 16:22 [email or web address] (ml) Colloids volume administered ( ml) Blood Product volume administered (ml) Total IV fluid infused 200 06/04/25 16:22 [email or web address] Anesthesia Postop Eval I: Summary Notes Anesthesia Complication No 06/04/25 16:22 [email or web address] Anesthesia Complication Comment: Post-operative progress note Anesthesia: Postop Eval II Evaluation Mental status: Awake and Calm Pain Level: 0 nausea: No Vomiting: No Complications Anesthesia Complication: No
== END 2025-06-04 17:15 | disposition home or self-care (01) ==
LOC: EN 13:49 → AC 13:52
PROVIDERS: PCP Internal Medicine Infectious Disease; Referring Provider Internal Medicine Infectious Disease; Visit Provider Internal Medicine Gastroenterology
PROC: 0DJ08ZZ Inspection of Upper Intestinal Tract, Via Natural or Artificial Opening Endoscopic (ICD-10-PCS; CPT 43235; principal; 2025-06-04 14:55)
DX: K22.2 Esophageal obstruction (principal); I10 Essential (primary) hypertension; I25.10 Atherosclerotic heart disease of native coronary artery without angina pectoris; Z79.02 Long term (current) use of antithrombotics/antiplatelets; Z79.899 Other long term (current) drug therapy
CPT/HCPCS: 43239; 43248; 88305; C1769